=== PATIENT | female | born 1960 | race Caucasian/White ===

== ENCOUNTER 2018-07-28 19:34 | Emergency (ER) | payer BC ==
[~2018-07-28] VITALS: Ht 157.5 cm; Wt 101.8 kg
[2018-07-28 19:56] VITALS: Ht 157.5 cm; Wt 101.8 kg
[2018-07-28 21:27] VITALS: BP 134/86
== END 2018-07-28 21:27 | disposition home or self-care (01) ==
LOC: ED 19:34
DX: R60.9 Edema, unspecified (principal)